=== PATIENT | female | born 1960 | race Two or more races ===

== ENCOUNTER 2019-02-27 09:43 | Emergency (ER) | payer MEDICAID, OTHER ==
[~2019-02-27] VITALS: Ht 157.5 cm; Wt 101.6 kg
[2019-02-27] MEDS ORDERED: SODIUM CHLORIDE 0.9% 1,000 ML IV ONE (10:18)
[2019-02-27] MEDS ORDERED: ALBUTEROL SULF 2.5 MG/0.5ML(0.5%) NEB SOLN NEB ONE (10:30)
[2019-02-27] MEDS ORDERED: IPRATROPIUM BROM 0.5 MG/2.5ML INH SOL NEB ONE (10:30)
[2019-02-27 11:51] LABS: Basophils # (auto) 0.1 uL; Basophils % (auto) 0.6 % (0.0-2.0); Eosinophils # (auto) 0.6 uL; Eosinophils % (auto) 6.4 % (0.0-7.0); Hematocrit 32.4 % (36.0-46.0); Hemoglobin 10.7 g/dL (12.2-16.2); Lymphocytes # (auto) 2.8 uL; Lymphocytes % (auto) 31.2 % (10.0-50.0); Mean Corpuscular Hemoglobin 30.8 pg (28.0-32.0); Mean Corpuscular Hgb Conc. 32.9 g/dL (32.0-36.0); Mean Corpuscular Volume 93.4 fL (80.0-100.0); Monocytes # (auto) 0.6 uL; Neutrophils # (auto) 4.9 uL; Neutrophils % (auto) 54.8 % (37.0-80.0); Platelet Count (auto) 392 10^3/uL (140-450); Red Blood Cells 3.47 10^6/uL (4.0-5.20); Red Cell Distribution Width 13.8 % (11.8-14.3)
[2019-02-27 12:00] VITALS: BP 147/86
[2019-02-27 12:08] LABS: Chloride 108 mmol/L (98-107); Sodium 139 mmol/L (136-145)
[2019-02-27 12:18] LABS: Alanine Aminotransferase 30 U/L (13-56); Albumin 3.6 g/dL (3.4-5.0); Alkaline Phosphatase 125 U/L (45-117); Anion Gap 3 (5-15); Aspartate Aminotransferase 21 U/L (15-37); BUN/Creatinine Ratio 25.7; Bilirubin, Total 0.4 mg/dL (0.2-1.0); Blood Urea Nitrogen 18 mg/dL (7-18); Calcium 9.1 mg/dL (8.5-10.1); Carbon Dioxide 28 mmol/L (21-32); GFR African American 111 mL/min; GFR Non-African American 92 mL/min; Glucose 91 mg/dL (74-106); Total Protein 8.2 g/dL (6.4-8.2)
[2019-02-27] MEDS ORDERED: METOCLOPRAMIDE HCL 5MG/ml INJ 2ml VIAL IV ONE (12:30)
[2019-02-27] MEDS ORDERED: KETOROLAC TROMETH 15 mg/ml 1ML VL IV ONE (12:30)
[2019-02-27 13:19] LABS: Urine Bacteria NONE SEEN /hpf (None Seen); Urine Blood Negative /uL (Negative); Urine Mucus FEW (None Seen); Urine Specific Gravity 1.021 (1.001-1.035); Urine WBC 1 /hpf (0 - 5)
== END 2019-02-27 15:15 | disposition home or self-care (01) ==
LOC: ER 09:46
DX: S40.012A Contusion of left shoulder, initial encounter (principal); S80.02XA Contusion of left knee, initial encounter; J45.901 Unspecified asthma with (acute) exacerbation; W19.XXXA Unspecified fall, initial encounter; Y93.89 Activity, other specified; Y92.098 Other place in other non-institutional residence as the place of occurrence of the external cause; Y99.8 Other external cause status
CPT/HCPCS: 29105; 36415; 71046; 73030; 73562; 80053; 81001; 83735; 83880; 84443; 84484; 85025; 93005; 94640; 96374; 99284; J1885; J7030; J7611; J7644

== ENCOUNTER 2021-01-09 13:51 | Emergency (ER) | payer MEDICAID ==
[~2021-01-09] VITALS: Ht 157.5 cm; Wt 102.1 kg
[2021-01-09 13:53] VITALS: BP 146/66
[2021-01-09 14:37] LABS: Urine WBC None Seen /hpf (0 - 5)
[2021-01-09 14:57] LABS: Urine Bacteria NONE SEEN /hpf (None Seen); Urine Blood Negative /uL (Negative); Urine Mucus FEW (None Seen); Urine Specific Gravity 1.021 (1.001-1.035)
== END 2021-01-09 16:05 | disposition home or self-care (01) ==
LOC: ER 13:51
DX: S39.012A Strain of muscle, fascia and tendon of lower back, initial encounter (principal); M54.41 Lumbago with sciatica, right side; R94.31 Abnormal electrocardiogram [ECG] [EKG]; Z98.890 Other specified postprocedural states; X58.XXXA Exposure to other specified factors, initial encounter; Y93.89 Activity, other specified; Y92.89 Other specified places as the place of occurrence of the external cause; Y99.8 Other external cause status
CPT/HCPCS: 81001; 93005

== ENCOUNTER 2024-07-01 17:47 | Emergency (ER) | payer MEDICAID ==
[~2024-07-01] VITALS: Ht 157.5 cm; Wt 81.0 kg
[2024-07-01 18:27] VITALS: BP 158/87; PULSE 78; RESP 20; TEMP 98.2; O2SAT 98
[2024-07-01] MEDS: ONDANSETRON ODT 4 MG TAB PO ONE (18:38)
[2024-07-01] MEDS: HYDROcodone-ACET 5/325MG TAB PO ONE (18:38)
== END 2024-07-01 19:47 | disposition home or self-care (01) ==
LOC: ER 17:47
DX: S16.1XXA Strain of muscle, fascia and tendon at neck level, initial encounter (principal); S00.01XA Abrasion of scalp, initial encounter; J45.909 Unspecified asthma, uncomplicated; G89.29 Other chronic pain; Z98.890 Other specified postprocedural states; V43.52XA Car driver injured in collision with other type car in traffic accident, initial encounter; Y93.89 Activity, other specified; Y92.89 Other specified places as the place of occurrence of the external cause; Y99.8 Other external cause status
CPT/HCPCS: 70450; 72125; 99284; Q0162

== ENCOUNTER 2025-07-06 11:08 | Inpatient (IN) | payer MEDICAID ==
[~2025-07-06] VITALS: Ht 157.5 cm; Wt 89.1 kg
[2025-07-06 11:11] VITALS: BP 134/69; RESP 15; TEMP 98.4; O2SAT 80
[2025-07-06 11:17] VITALS: PULSE 72
--- NOTE | 2025-07-06 11:52 | ED.PDOC ---
HPI Comments 64 y/o F, with PMHx of HTN, HLD, and asthma presents to the ED for CC of chest pain. Patient states, she has been experiencing substernal chest pain that radiates to her neck x1day. Patient reports, pain to have been non-provoked and to have come on suddenly. Patient denies shortness of breath, palpitations, weakness, excessive sweating, or extremity swelling. No other symptoms or modifying factors are present at this time. Chief Complaint: Chest Pain Time Seen by MD: 11:45 Primary Care Provider: NOHEMI Reviewed Notes: Nurses Notes, Medications, Allergies Allergies: Coded Allergies: NO KNOWN ALLERGIES (Unverified , 02/27/19) Information Source: Patient Mode of Arrival: Ambulatory Severity: Moderate Timing: Days Duration: Since onset Prehospital treatment: None Location: Substernal Radiation: Neck Onset: At Rest Cardiac Risk Factors: Hyperlipidemia, HTN PE Risk Factors: None History of: None Modifying Factors: Nothing Associated Signs and Symptoms: None Past Medical History PAST MEDICAL HISTORY: Asthma, High Lipids, HTN, Thyroid Surgical History: Hernia Repair 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 History Family History Family History: Unknown Social History Smoker: Non-Smoker Alcohol: Denies ETOH Use Drugs: Denies Drug Use Lives In: Home Constitutional: denies: chills, diaphoresis, fatigue, fever, malaise, sweats, weakness, others EENTM: denies: blurred vision, double vision, ear bleeding, ear discharge, ear drainage, ear pain, ear ringing, eye pain, eye redness, hearing loss, mouth pain, mouth swelling, nasal discharge, nose bleeding, nose congestion, nose pain, photophobia, tearing, throat pain, throat swelling, voice changes, others Respiratory: denies: cough, hemoptysis, orthopnea, SOB at rest, shortness of breath, SOB with excertion, stridor, wheezing, others Cardiovascular: reports: chest pain; denies: dizzy spells, diaphoresis, Dyspnea on exertion, edema, irregular heart beat, left arm pain, lightheadedness, palpitations, PND, syncope, others Gastrointestinal: denies: abdomen distended, abdominal pain, blood streaked bowels, constipated, diarrhea, dysphagia, difficulty swallowing, hematemesis, melena, nausea, poor appetite, poor fluid intake, rectal bleeding, rectal pain, vomiting, others Genitourinary: denies: abnormal vagina bleeding, burning, dyspareunia, dysuria, flank pain, frequency, hematuria, incontinence, pain, , vagina discharge, urgency, others Neurological: denies: dizziness, fainting, headache, left sided numbness, left sided weakness, numbness, paresthesia, pre-existing deficit, right sided numbness, right sided weakness, seizure, speech problems, tingling, tremors, weakness, others Musculoskeletal: denies: back pain, gout, joint pain, joint swelling, muscle pain, muscle stiffness, neck pain, others Integumetry: denies: bruises, change in color, change in hair/nails, dryness, laceration, lesions, lumps, rash, wounds, others Allergic/Immunocompromised: denies: Difficulty Healing, Frequent Infections, Hives, Itching, others Hematologic/Lymphatic: denies: anemia, blood clots, easy bleeding, easy bruising, swollen glands, others Endocrine: denies: excessive hunger, excessive sweating, excessive thirst, excessive urination, flushing, intolerance to cold, intolerance to heat, unexplained weight gain, unexplained weight loss, others Psychiatric: denies: anxiety, bipolar disorder, depression, hopeless, panic disorder, schizophrenia, sleepless, suicidal, others All Other Systems: Reviewed and Negative Physical Exam General Appearance: Moderate Distress HEENT: Normal ENT Inspection, Pharynx Normal, TMs Normal Neck: Full Range of Motion, Non-Tender, Normal, Normal Inspection Respiratory: Chest Non-Tender, Lungs Clear, No Accessory Muscle Use, No Respiratory Distress, Normal Breath Sounds Cardiovascular: No Edema, No JVD, No Murmur, No Gallop, Normal Peripheral Pulses, Regular Rate/Rhythm Breast Exam: Deferred Gastrointestinal: No Organomegaly, Non Tender, No Pulsatile Mass, Normal Bowel Sounds, Soft Genitalia: Deferred Pelvic: Deferred Rectal: Deferred Extremities: No calf tenderness, Normal capillary refill, Normal inspection, Normal range of motion, Non-tender, No pedal edema Musculoskeletal : Apperance: Normal Neurologic: Alert, 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 Was a procedure done?: No CP Differential Dx Differential Diagnosis: A-fib, A-Flutter, Angina Differential Diagnosis: HTN Essential, HTN Accelerated Differential Diagnosis: Chest Wall Pain, Costochondritis X-Ray, Labs, Meds, VS Vital Signs Date Time Temp Pulse Resp B/P (MAP) Pulse Ox O2 Delivery O2 Flow Rate FiO2 07/06/25 11:17 72 07/06/25 11:11 98.4 96 15 134/69 80 98.4 Lab Test 07/06/25 11:23 Range/Units White Blood Count 9.0 4.4-10.8 10^3/uL Red Blood Count 3.55 L 4.0-5.20 10^6/uL Hemoglobin 11.1 L 12.2-16.2 g/dL Hematocrit 32.3 L 36.0-46.0 % Mean Corpuscular Volume 91.0 80.0-100.0 fL Mean Corpuscular Hemoglobin 31.1 28.0-32.0 pg Mean Corpuscular Hemoglobin Concent 34.2 32.0-36.0 g/dL Red Cell Distribution Width 13.7 11.8-14.3 % Platelet Count 435 140-450 10^3/uL Mean Platelet Volume 7.5 6.9-10.8 fL Neutrophils (%) (Auto) 53.5 37.0-80.0 % Lymphocytes (%) (Auto) 24.3 10.0-50.0 % Monocytes (%) (Auto) 14.3 H 0.0-12.0 % Eosinophils (%) (Auto) 7.9 H 0.0-7.0 % Basophils (%) (Auto) 0.0 0.0-2.0 % Neutrophils # (Auto) 4.8 1.6-8.6 10 ^3/uL Lymphocytes # (Auto) 2.2 0.4-5.4 10 ^3/uL Monocytes # (Auto) 1.3 0-1.3 10 ^3/uL Eosinophils # (Auto) 0.7 0-0.8 10 ^3/uL Basophils # (Auto) 0 0-0.2 10 ^3/uL Nucleated Red Blood Cells 0.0 % Sodium Level 143 136-145 mmol/L Potassium Level 3.8 3.5-5.1 mmol/L Chloride Level 107 98-107 mmol/L Carbon Dioxide Level 24 20-31 mmol/L Anion Gap 12 5-15 Blood Urea Nitrogen 14 9-23 mg/dL Creatinine 0.75 0.550-1.02 mg/dL Glomerular Filtration Rate Calc 89 >90 mL/min BUN/Creatinine Ratio 18.7 10.0-20.0 Serum Glucose 106 74-106 mg/dL Calcium Level 9.5 8.7-10.4 mg/dL Troponin I High Sensitivity 3 L </=34 ng/L Patient alert. Complaining of chest pain. Vitals stable. Answering questions. Cardiac marker within normal limits pain EKG reviewed does not show any acute changes. Has risk factors. Explained to the patient she will need stress test. Cardiology consultation. Continue monitoring. Time of 1ST Reevaluation: 12:15 Reevaluation 1ST: Unchanged Patient Education/Counseling: Diagnosis, Treatment Family Education/Counseling: No Family Present SEPSIS Sepsis Screen Date sepsis recognized/suspect: Jul 06, 2025 Time Sepsis recognized/suspect: 1113 Recent Procedure: No On Antibiotic Therapy: No Respiratory Rate >20: No Heart Rate >90: No Temp<36 C (96.8 F) or >38.3 C: No SBP <90 or MAP <65 mmHG: No New Acute Mental Status Change: No Is the patient on CPAP, BIPAP,: No Physician Orders Troponin-I Hs (07/06/25 12:09) Troponin-I Hs (07/06/25 14:09) Electrocardigram (07/06/25 11:15) Electrocardigram (07/06/25 12:15) Electrocardigram (07/06/25 14:15) Chest Portable (07/06/25 11:46) Urinalysis (07/06/25 11:46) Vital Signs Date Time Temp Pulse Resp B/P (MAP) Pulse Ox O2 Delivery O2 Flow Rate FiO2 07/06/25 11:17 72 07/06/25 11:11 98.4 96 15 134/69 80 98.4 Laboratory Tests Test 07/06/25 11:23 White Blood Count 9.0 10^3/uL (4.4-10.8) Departure 1 Departure Time of Disposition: 12:33 Impression: Primary Impression: Chest pain of unknown etiology Disposition: ADMITTED INPATIENT Admit to: Med Surg Condition: Guarded Critical Care Note Critical Care Time?: Yes (90 min-critical care time only) Stability Stability form required: No Heart Score Heart Score: Heart Score Response (Comments) Value History Slightly Suspicious 0 EKG Normal 0 Age 45-64 1 Risk Factors 1 or 2 risk factors 1 Troponin Normal limit 0 Total 2 I personally scribed for FRANKIE WAHL MD ([email or web address]) on 07/06/25 at 11:52. Electronically submitted by Eda Hill [email or web address]). FRANKIE WAHL MD Jul 06, 2025 11:52
[2025-07-06 12:18] LABS: Chloride 107 mmol/L (98-107); Potassium 3.8 mmol/L (3.5-5.1); Sodium 143 mmol/L (136-145)
[2025-07-06 12:19] LABS: Anion Gap 12 (5-15); Calcium 9.5 mg/dL (8.7-10.4); Carbon Dioxide 24 mmol/L (20-31)
[2025-07-06 12:21] LABS: Hematocrit 32.3 % (36.0-46.0); Hemoglobin 11.1 g/dL (12.2-16.2); Mean Corpuscular Hemoglobin 31.1 pg (28.0-32.0); Mean Corpuscular Volume 91.0 fL (80.0-100.0); Nucleated Red Blood Cells % 0.0 %
[2025-07-06 12:24] LABS: BUN/Creatinine Ratio 18.7 (10.0-20.0); Blood Urea Nitrogen 14 mg/dL (9-23); Glucose 106 mg/dL (74-106)
[2025-07-06] MEDS ORDERED: MORPHINE SULFATE INJ 2 MG/ml SYRG IV PRN ×2 (14:00)
[2025-07-06] MEDS ORDERED: hydrALAZINE HCL 20 MG/ML VL IV PRN (14:00)
[2025-07-06] MEDS ORDERED: HYDROcodone-ACET 5/325MG TAB PO PRN (14:00)
[2025-07-06] MEDS ORDERED: TEMAZEPAM 15 MG CAP PO PRN (14:00)
[2025-07-06] MEDS ORDERED: DOCUSATE SOD 100 MG CAP PO PRN (14:00)
[2025-07-06] MEDS ORDERED: ONDANSETRON HCL 4 MG/2 ML VIAL IV PRN (14:00)
[2025-07-06] MEDS ORDERED: NITROGLYCERIN 0.4 MG SL TAB SL PRN ×2 (14:00)
[2025-07-06] MEDS ORDERED: ACETAMINOPHEN 325 MG TAB PO PRN (14:00)
--- NOTE | 2025-07-06 19:57 | DVHHP2 ---
Admitting Diagnosis: Chest pain History of Present Illness 64 yo female patient with hx of HTN, HLD, and asthma c/o sudden onset chest pain that radiates to her neck x 1 day. Patient denies any other symptoms. While in the emergency department the patient was evaluated by the provider, As per provider: Labs, vital signs, and imagining monitored. Patient will be admitted for further evaluation and treatment. I discussed admission with the patient/family and is in agreement to treatment plan. Allergies: Coded Allergies: NO KNOWN ALLERGIES (Unverified , 02/27/19) Current Medications Current Medications Medications (Trade) Dose Ordered Sig/Ivory Route PRN Reason Start Time Stop Time Status Last Admin Acetaminophen/ Hydrocodone Bitart ([place] 5/325MG Tab) 1 tab Q4HP PRN PO MODERATE PAIN (4-6 PAIN SCALE) 07/06/25 14:00 Temazepam (Restoril) 15 mg QHSP PRN PO FOR INSOMNIA 07/06/25 14:00 Ondansetron HCl (Zofran) 4 mg Q4HP PRN IV NAUSEA / VOMITING 07/06/25 14:00 Docusate Sodium (Colace Capsule) 100 mg BIDPRN PRN PO FOR CONSTIPATION 07/06/25 14:00 Enoxaparin Sodium (Lovenox) 40 mg DAILY SC 07/07/25 10:00 Acetaminophen (Tylenol Tablet) 650 mg Q6HP PRN PO PAIN SCALE 1-3 OR TEMP>100.4 07/06/25 14:00 Morphine Sulfate 2 mg Q4HPRN PRN IV SEVERE PAIN (7-10 PAIN SCALE) 07/06/25 14:00 Nitroglycerin (Ntrostat Sublingual) 0.4 mg Q5MINP PRN SL FOR CHEST PAIN 07/06/25 14:00 UNV Morphine Sulfate 2 mg Q30M PRN IV FOR CHEST PAIN 07/06/25 14:00 Hydralazine HCl (Apresoline Injection) 10 mg Q6HP PRN IV SBP>150 07/06/25 14:00 Pantoprazole Sodium (Protonix) 40 mg DAILY IV 07/07/25 10:00 Nitroglycerin (Ntrostat Sublingual) 0.4 mg Q5MIN PRN SL cp 07/06/25 14:00 Review of Systems Constitutional: denies chills, denies fever, denies malaise Eyes: denies eye pain, denies vision change ENT: denies ear pain, denies headache, denies nasal congestion, denies painful swallowing, denies voice change Cardiovascular: denies chest pain, denies edema, denies orthopnea, denies palpitations, denies paroxysmal nocturnal dyspnea Respiratory: denies cough, denies shortness of breath Gastrointestinal: denies constipation, denies diarrhea, denies nausea, denies vomiting Genitourinary: denies dysuria, denies frequent urination, denies urethral discharge Musculoskeletal: denies back pain, denies joint pain, denies muscle pain Skin: denies bruising, denies itching, denies rash Neurological: denies focal weakness, denies headache, denies sensory changes Psychiatric: denies anxiety, denies depression Endocrine: denies polydipsia, denies polyuria Hematologic/Lymphatic: denies easy bleeding, denies easy bruising, denies enlarged lymph nodes Allergic/Immunologic: denies allergy, denies hives Vital Signs Vital Signs Date Time Temp Pulse Resp B/P (MAP) Pulse Ox O2 Delivery O2 Flow Rate FiO2 07/06/25 11:17 72 07/06/25 11:11 98.4 15 134/69 80 98.4 Physical Exam General Appearance: alert, no distress HEENT: EOMI, PERRLA, normal external inspect of ears, no icterus, no nasal dr ainage Neck: no carotid bruit, no jugular venous distention (JVD), no lymphadenopathy Chest: normal thorax Respiratory: clear to auscultation, normal air movement Cardiovascular: regular rate and rhythm, no diastolic murmur, no jugular venous distention (JVD), no rub, no systolic murmur Abdominal: soft, no hepatomegaly, no mass, no splenomegaly, no tenderness Genitourinary: grossly normal external Musculoskeletal: no joint tenderness, no swelling Extremities: normal pulses, no calf tenderness, no clubbing, no cyanosis, no edema Skin: no bruising, no jaundice, no rash Neurological: alert, No focal deficit SEPSIS Sepsis Screen Date sepsis recognized/suspect: Jul 06, 2025 Time Sepsis recognized/suspect: 1113 Recent Procedure: No On Antibiotic Therapy: No Respiratory Rate >20: No Heart Rate >90: No Temp<36 C (96.8 F) or >38.3 C: No SBP <90 or MAP <65 mmHG: No New Acute Mental Status Change: No Is the patient on CPAP, BIPAP,: No Physician Orders Electrocardigram (07/06/25 11:15) Electrocardigram (07/06/25 12:15) Electrocardigram (07/06/25 14:15) Urinalysis (07/06/25 11:46) Admit (07/06/25 13:51) Code Status (07/06/25 13:51) Hydrocodone-Acet 5/325mg Tab ([place] 5/32 (07/06/25 14:00) Temazepam (Restoril) (07/06/25 14:00) Ondansetron Hcl (Zofran) (07/06/25 14:00) Docusate Sodium Capsule (Colace Capsule) (07/06/25 14:00) Enoxaparin Sodium (Lovenox) (07/07/25 10:00) Complete Blood Count (07/07/25 04:00) Comprehensive Metabolic Panel (07/07/25 04:00) Cardiac Diet-2gna,Lofat,Lochol (07/06/25 Dinner) Condition: Fair (07/06/25 13:51) Acetaminophen Tablet (Tylenol Tablet) (07/06/25 14:00) Morphine Sulfate Injection (07/06/25 14:00) Sequential Compression Device (07/06/25 ) *Consult Dr. Dharmesh Sams (07/06/25 13:51) Morphine Sulfate Injection (07/06/25 14:00) Stat Ekg For Chest Pain (07/06/25 13:51) Notify Md Of Changes From Base (07/06/25 13:51) Product Development Intern For 24 Hours (07/06/25 13:51) Emergency Dysrhythmia Protocol (07/06/25 13:51) Rhythm Strips Once Every Shift (07/06/25 13:51) Oxygen By Nasal Cannula (07/06/25 13:51) Hydralazine Injection (Apresoline Inject (07/06/25 14:00) Pantoprazole (Protonix) (07/07/25 10:00) Nitroglycerin Sublingual (Ntrostat Subli (07/06/25 14:00) Vital Signs Date Time Temp Pulse Resp B/P (MAP) Pulse Ox O2 Delivery O2 Flow Rate FiO2 07/06/25 11:17 72 07/06/25 11:11 98.4 96 15 134/69 80 98.4 Laboratory Tests Test 07/06/25 11:23 White Blood Count 9.0 10^3/uL (4.4-10.8) Results Labs Test 07/06/25 11:23 Range/Units White Blood Count 9.0 4.4-10.8 10^3/uL Red Blood Count 3.55 L 4.0-5.20 10^6/uL Hemoglobin 11.1 L 12.2-16.2 g/dL Hematocrit 32.3 L 36.0-46.0 % Mean Corpuscular Volume 91.0 80.0-100.0 fL Mean Corpuscular Hemoglobin 31.1 28.0-32.0 pg Mean Corpuscular Hemoglobin Concent 34.2 32.0-36.0 g/dL Red Cell Distribution Width 13.7 11.8-14.3 % Platelet Count 435 140-450 10^3/uL Mean Platelet Volume 7.5 6.9-10.8 fL Neutrophils (%) (Auto) 53.5 37.0-80.0 % Lymphocytes (%) (Auto) 24.3 10.0-50.0 % Monocytes (%) (Auto) 14.3 H 0.0-12.0 % Eosinophils (%) (Auto) 7.9 H 0.0-7.0 % Basophils (%) (Auto) 0.0 0.0-2.0 % Neutrophils # (Auto) 4.8 1.6-8.6 10 ^3/uL Lymphocytes # (Auto) 2.2 0.4-5.4 10 ^3/uL Monocytes # (Auto) 1.3 0-1.3 10 ^3/uL Eosinophils # (Auto) 0.7 0-0.8 10 ^3/uL Basophils # (Auto) 0 0-0.2 10 ^3/uL Nucleated Red Blood Cells 0.0 % Sodium Level 143 136-145 mmol/L Potassium Level 3.8 3.5-5.1 mmol/L Chloride Level 107 98-107 mmol/L Carbon Dioxide Level 24 20-31 mmol/L Anion Gap 12 5-15 Blood Urea Nitrogen 14 9-23 mg/dL Creatinine 0.75 0.550-1.02 mg/dL Glomerular Filtration Rate Calc 89 >90 mL/min BUN/Creatinine Ratio 18.7 10.0-20.0 Serum Glucose 106 74-106 mg/dL Calcium Level 9.5 8.7-10.4 mg/dL Troponin I High Sensitivity 3 L </=34 ng/L Plan 1. Unstable angina Monitor on telemetry, cardiology consult, echocardiogram, trend troponin 2. HLD Monitor, lipid panel 3. Morbid Obesity Monitor, PPI 4. Benign Essential HTN Monitor, antihypertensives, DVT prophylaxis Plan discussed with: Patient LAURA MAYBERRY NP Jul 06, 2025 19:57
[2025-07-07] MEDS ORDERED: PANTOPRAZOLE 40 MG/10 ML VIAL INJ IV SCH (10:00)
[2025-07-07] MEDS ORDERED: ENOXAPARIN SOD 40 MG/0.4 ML SYRINGE SC SCH (10:00)
--- NOTE | 2025-07-07 14:17 | ECG ---
[facility] Test Date: 2025-07-06 Test Time: 11:17:31 Pat Name: SHAYY FERREIRA Department: Room: [address] [place] [address] Gender: F Thread Laster: SHELBI : 1960 Requested By: FRANKIE WAHL Order Number: [id number] Reading MD: Wily Lewis Measurements Intervals [place] Rate: 72 P: 34 TN: 160 QRS: 34 QRSD: 91 T: 32 QT: 435 QTc: 477 Interpretive Statements Sinus rhythm Minimal ST depression, inferior leads Electronically Signed On 07-08-2025 13:36:57 PST by Wily Lewis Please click the below link to view image of tracing.
== END 2025-07-06 15:12 | disposition left against medical advice (07) | DRG 198 ==
LOC: ER 11:08 → OVERFLOW 12:21
PROVIDERS: ADMIT Nurse Practitioner; ATTEND Nurse Practitioner
DX: I20.0 Unstable angina (principal); E66.01 Morbid (severe) obesity due to excess calories; E78.5 Hyperlipidemia, unspecified; I10 Essential (primary) hypertension; J45.909 Unspecified asthma, uncomplicated; Z68.35 Body mass index [BMI] 35.0-35.9, adult
CPT/HCPCS: 36415; 80048; 84484; 85025; 93005; 99291; 99292; G0378